=== PATIENT | female | born 1985 | race Caucasian/White ===

== ENCOUNTER 2018-08-27 06:39 | Inpatient (IN) | payer OTHER ==
--- NOTE | 2018-08-28 23:03 | HP ---
DATE OF ADMISSION: 08/29/2018 ADMISSION DIAGNOSIS: A 39 and 3/7th weeks intrauterine , admitted for elective induction of labor. HISTORY OF PRESENT ILLNESS: The patient is a 32-year-old 3, para 2-0-0-2 white female, who is admitted with an GAURANG of 09/02/2018, presently at 39 and 3/7th weeks of gestational age upon admission. She is undergoing elective induction of labor. She has had a previous section done in 2015, but had vaginal delivery of twins in 2013 and wishes to be back at this time. Vaginal after section after a trial of labor after section was discussed with the patient in detail. The procedure, risks, precautions to be taken and special preparation all discussed with her. She appears to understand, wishes to proceed and will sign the consent prior to initiation of the induction. MEAT BONER AND SLICER HISTORY: 3, para 2-0-1-2. The patient's last menstrual period started on 12/06/2017 was approximate in nature. She does have periods on a monthly basis and was not using any control at the time of conception. Her GAURANG is set at 09/02/2018 by an ultrasound done at 13 and 2/7th weeks on 02/27/2018. The patient was seen on a regular basis throughout the course of her . Her previous deliveries have included the followin. Twin gestational delivery on 09/10/2013 at 38 weeks of gestational age after 24 hours of labor. Both female infants weighing 6 pounds 4 ounces and 6 pounds 7 ounces. They were delivered in [place], [place]. The patient had a retained placenta. Children's names were Courtney and Cecilia. 2. Male born on 04/10/2016, after 12 hours of labor - 9 pounds 8 ounces male by section done for failure to progress secondary to cephalopelvic disproportion. Child's name is Adolfo. course during this has been relatively unremarkable. The patient received flu shot in fall. She had genetic testing performed. She is group B strep negative. History of previous section for failure to progress. History of twin vaginal delivery. RhoGAM was given on 06/18/2018. Tdap was administered on 08/06/2018. course showed a weight gain of approximately 10 pounds from 260 to 270 pounds. Her vital signs have been normal when the appropriate size cuff has been used. Her fundal height growth has been ahead of schedule. Most recent ultrasound done on 08/06/2018, showed baby growing at the 63rd percentile. Decision was made at that time to attempt , as the patient desired as it was felt to be reasonable due to the estimated weight per ultrasound. Laboratory testing in shows her blood to be A negative with a negative antibody screen. First hemoglobin was 13.3 g/dL and platelets were 259,000. She is rubella immune. RPR is nonreactive. Urine culture showed evidence of contamination, but otherwise was negative. Hepatitis B surface antigen and HIV assays were both negative as were chlamydia and gonorrhea tests. Second trimester hemoglobin was 11.7 and platelets were 232,000. One-hour glucose tolerance test was normal at 99. Group B strep screen was negative. ALLERGIES: None. CURRENT MEDICATIONS: vitamins 1 daily. PAST MEDICAL HISTORY: 1. Vaginal delivery of twins, 09/20/2013. 2. Hay fever. PAST SURGICAL HISTORY: 1. Primary section for failure to progress, April 2016. 2. [place] teeth extraction. FAMILY HISTORY: Mother is alive and well. Father is alive, but suffers from gout. One sister is alive and well. Paternal grandfather is secondary to old age. He did have skin cancer. Paternal grandmother is secondary to old age. Paternal grandfather is secondary to black lung, as he worked in the coal [employer]. He was also a smoker and a drinker. Paternal grandmother is from old age. Was a smoker also. Family history is negative for cancer, bleeding/clotting problems. No -related issues are noted. SOCIAL HISTORY: The patient is . is Jorge L Estrada. 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 They live in [place], [place]. She does not use any significant amounts of alcohol, drugs, or tobacco. REVIEW OF SYSTEMS: GENERAL: The patient is doing well. She has no significant complaints. Baby has been active. SKIN: Negative. HEENT: Neck and back: Negative. CARDIOVASCULAR: No chest pain or exercise intolerance. RESPIRATORY: No shortness of breath or infectious symptoms. BREASTS: Changes associated with . GI: Negative. : Increased abdominal fundal height consistent with term . EXTREMITIES AND NEUROLOGICAL: Unremarkable. PHYSICAL EXAMINATION: GENERAL: The patient is a well-developed, well-nourished, pleasant, overweight female, in no acute distress. VITAL SIGNS: Last blood pressure in clinic was 122/78 with appropriate sized cuff. Her heart rate was 144. Her pregravid weight was 265 pounds. Height is 5 feet 6 inches. Pregravid body mass index was 42.9. SKIN: Warm and dry without lesions. LUNGS: Clear with good breath sounds in all lung barton. CARDIOVASCULAR: Shows regular rate and rhythm without murmurs. BREASTS: Exam is not performed, as it was done at first visit and found to be normal. ABDOMEN: Shows a gravid uterus with fundal height measurement of 40.5 cm with baby felt to be in vertex presentation. : Cervical exam shows the cervix to be 2 cm, 50% effaced, very soft, mid position, -3 station. EXTREMITIES: Show no significant edema at present the time. ASSESSMENT: 1. A 39 and 3/7th week intrauterine , admitted for elective induction of labor. 2. History of previous section for cephalopelvic disproportion secondary to a macrosomic baby weighing 9 pounds 8 ounces. The patient desires at this time. She has delivered vaginally a twin gestation in 2013. 3. Group B strep screen is negative. 4. Blood is A negative. The patient has received RhoGAM and is a candidate for RhoGAM if the baby's blood is Rh positive. 5. RPR is nonreactive. 6. The patient plans to breastfeed. PLAN: 1. Induction of labor with either artificial rupture of membranes or Pitocin followed by artificial rupture of membranes. 2. Epidural p.r.n. for pain control. 3. RPR upon admission. Platelet count upon admission. 4. Precautions regarding the risk of given to the patient. We will near continuously monitor the baby's heart rate. We will have labs performed upon admission. We will judiciously use Pitocin and rupture of membranes for induction of labor. Also, we will obtain labs and inform Anesthesia and Surgery Department that there is a patient in-house. MMSANTA /[id number] ROQUE
[2018-08-29] MEDS ORDERED: Nalbuphine 20 MG/ML 1 ML Syringe IVPUSH PRN (06:46)
[2018-08-29] MEDS ORDERED: Sodium Chloride 0.9% 10 ML Syringe FLUSH PRN (06:46)
[2018-08-29] MEDS ORDERED: Lactated Ringers 1,000 ML IV SCH (07:00)
[2018-08-29] MEDS ORDERED: Oxytocin/Lactated Ringers 10 UNIT/1,000 ML BAG IV SCH ×2 (07:00)
[2018-08-29] MEDS ORDERED: fentaNYL 100 MCG/2 ML SDV EPIDUR PRN (07:37)
[2018-08-29] MEDS ORDERED: ePHEDrine 50 MG/ML SDV IVPUSH PRN (07:37)
[2018-08-29] MEDS ORDERED: fentaNYL/Bupivacaine-NS 2 MCG/ML-0.125%/PF 100 ML Bag EPIDUR ONE (07:37)
[2018-08-29] MEDS ORDERED: diphenhydrAMINE 50 MG/ML SDV IVPUSH PRN (07:37)
--- NOTE | 2018-08-29 08:46 | PCM.PREANE ---
Preanesthetic Assessment - Anesthesia/Transfusion/Family Hx Anesthesia History: Prior Anesthesia Without Reaction Family History of Anesthesia Reaction: No Transfusion History: No Prior Transfusion(s) - Review of Systems General: No Symptoms Pulmonary: No Symptoms Cardiovascular: Dyspnea on Exertion Gastrointestinal: Abdominal Pain (labor contractions) Neurological: No Symptoms Other: Reports: None - Physical Assessment Pulse: 75 O2 Sat by Pulse Oximetry: 99 Respiratory Rate: 14 Blood Pressure: 141/77 Temperature: 37.2 C Vital Signs: Last Vital Signs Temp 37.2 C 08/29/18 07:28 Pulse 75 08/29/18 07:28 Resp 14 08/29/18 07:28 BP 141/77 H 08/29/18 07:28 Pulse Ox 99 08/29/18 07:28 Height: 1.68 m Weight: 122.606 kg ASA Class: 2 Mental Status: Alert & Oriented x3 Airway Class: Mallampati = 1 Dentition: Reports: Normal Dentition Thyro-Mental Finger Breadths: 3 Mouth Opening Finger Breadths: 3 ROM/Head Extension: Full Lungs: Clear to Auscultation, Normal Respiratory Effort Cardiovascular: Regular Rate, Regular Rhythm - Lab Values: Laboratory Last Values WBC 10.38 K/mm3 (3.98-10.04) H 08/29/18 07:25 RBC 3.70 M/mm3 (3.98-5.22) L 08/29/18 07:25 Hgb 11.2 gm/L (11.2-15.7) 08/29/18 07:25 Hct 32.5 % (34.1-44.9) L 08/29/18 07:25 MCV 87.8 fl (79.4-94.8) 08/29/18 07:25 MCH 30.3 pg (25.6-32.2) 08/29/18 07:25 MCHC 34.5 g/dl (32.2-35.5) 08/29/18 07:25 RDW Std Deviation 42.3 fL (36.4-46.3) 08/29/18 07:25 Plt Count 250 K/mm3 (182-369) 08/29/18 07:25 MPV 9.6 fl (9.4-12.3) 08/29/18 07:25 Neut % (Auto) 76.3 % (34.0-71.1) H 08/29/18 07:25 Lymph % (Auto) 14.4 % (19.3-51.7) L 08/29/18 07:25 [place] % (Auto) 7.7 % (4.7-12.5) 08/29/18 07:25 Eos % (Auto) 1.3 (0.7-5.8) 08/29/18 07:25 Baso % (Auto) 0.1 % (0.1-1.2) 08/29/18 07:25 Neut # (Auto) 7.93 K/mm3 (1.56-6.13) H 08/29/18 07:25 Lymph # (Auto) 1.49 K/mm3 (1.18-3.74) 08/29/18 07:25 [place] # (Auto) 0.80 K/mm3 (0.24-0.36) H 08/29/18 07:25 Eos # (Auto) 0.13 K/mm3 (0.04-0.36) 08/29/18 07:25 Baso # (Auto) 0.01 K/mm3 (0.01-0.08) 08/29/18 07:25 - Acknowledgements Anesthesia Type Planned: Epidural Pt an Appropriate Candidate for the Planned Anesthesia: Yes Alternatives and Risks of Anesthesia Discussed w Pt/Guardian: Yes Pt/Guardian Understands and Agrees with Anesthesia Plan: Yes PreAnesthesia Questionnaire Gastrointestinal History: Reports: GERD 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: - Past Surgical History HEENT Surgical History: Reports: Other (See Below) Other HEENT Surgeries/Procedures: enlarged adenoids Female Surgical History: Reports: Section - SUBSTANCE USE Smoking Status *Q: Never Smoker Tobacco Use Within Last Twelve Months: No Second Hand Smoke Exposure: No Days Per Week of Alcohol Use: 0 Number of Drinks Per Day: 0 Total Drinks Per Week: 0 Recreational Drug Use History: No - CURRENT (IN HOUSE) MEDS Current Meds: Current Medications Diphenhydramine HCl (Benadryl) 25 mg IVPUSH Q6H PRN PRN Reason: Itching Ephedrine Sulfate (Ephedrine Sulfate) 5 mg IVPUSH ASDIRECTED PRN PRN Reason: HYPOTENTSION Fentanyl (Sublimaze) 100 mcg EPIDUR Q3H PRN PRN Reason: Pain Lactated Ringer's (Ringers, Lactated) 1,000 mls @ 100 mls/hr IV ASDIRECTED MARIA LUZ Oxytocin/Lactated Ringer's (Pitocin In Lr 10 Units/1,000 Ml) 10 unit in 1,000 mls @ 12 mls/hr IV TITRATE MARIA LUZ; Protocol Oxytocin/Lactated Ringer's (Pitocin In Lr 10 Units/1,000 Ml) 10 unit in 1,000 mls @ 500 mls/hr IV .CONTINUOUS MARIA LUZ Nalbuphine HCl (Nubain) 10 mg IVPUSH Q2H PRN PRN Reason: pain Sodium Chloride (Saline Flush) 10 ml FLUSH ASDIRECTED PRN PRN Reason: Keep Vein Open Discontinued Medications Fentanyl/Bupivacaine HCl (Vttlbwlu-Wmkhw-Bf 2 Mcg/Ml-0.125%) 100 ml EPIDUR ONETIME ONE Stop: 08/29/18 07:38
[2018-08-29] MEDS ORDERED: Bupivacaine 0.25% 10 ML SDV ONE (09:00)
[2018-08-29] MEDS ORDERED: Ondansetron 4 MG/2 ML SDV IVPUSH PRN (14:55)
[2018-08-29] MEDS ORDERED: fentaNYL/Bupivacaine-NS 2 MCG/ML-0.125%/PF 100 ML Bag EPIDUR PRN (15:18)
--- NOTE | 2018-08-29 18:03 | PCM.SN ---
- Free Text/Narrative Note: Comfort is a 32-year-old 3 now para 3003 white female with an GAURANG of 09/02, placing her at 39-3/7 weeks gestational age on admission for spontaneous rupture of membranes. Patient had resultant clear amniotic fluid. This occurred at approximately 0515 hrs. on 08/29/2018. She came into the hospital approximately 2 hours after that time. Patient's labor progressed steadily until approximately 4 cm and was then augmented with small amount of Pitocin. She had an epidural for labor and analgesia. This worked well for her. She rapidly went to complete cervical dilation by approximately 1700 hrs. At 1724 hrs. patient delivered a viable, morris, male infant with Apgars of 8 and 9, length of 21 inches, a weight of 3320 g (7 pounds 5.1 ounces) in a left occiput anterior position. The baby was completely delivered and placed on mom's abdomen. Nose and mouth were bulb suctioned. Pitocin was started per IV to facilitate increase in uterine tone and decrease likelihood of bleeding. Cord was clamped 2 after about 1 minute of allowing it to pulse. It was cut by the baby's father. Cord blood was obtained. The umbilical cord was noted to have 3 vessels. The placenta delivered at 1727 hrs. in a Gary presentation. It appeared intact and complete and was discarded per patient desire. Estimated blood loss was 200 mL. Patient plans to breast-feed. Condition: Good
[2018-08-29] MEDS ORDERED: Benzocaine/Menthol 20%-0.5% Spray 56 GM Canister TOP PRN (18:10)
[2018-08-29] MEDS ORDERED: Docusate Sodium 100 MG Cap PO PRN (18:10)
[2018-08-29] MEDS ORDERED: Witch Hazel Medicated Pads 40/Jar TOP PRN (18:10)
[2018-08-29] MEDS ORDERED: Lanolin 100% Cream 7 GM Tube TOP PRN (18:10)
[2018-08-29] MEDS ORDERED: Acetaminophen 325 MG Tab PO PRN (18:10)
[2018-08-29] MEDS: Ibuprofen 600 MG Tab PO PRN (20:22)
[2018-08-30] MEDS: Ibuprofen 600 MG Tab PO PRN (01:20)
--- NOTE | 2018-08-30 09:59 | PCM48HPAN ---
Post Anesthesia Note - EVALUATION WITHIN 48HRS OF ANESTHETIC Vital Signs in Normal Range: Yes Patient Participated in Evaluation: Yes Respiratory Function Stable: Yes Airway Patent: Yes Cardiovascular Function Stable: Yes Hydration Status Stable: Yes Pain Control Satisfactory: Yes Nausea and Vomiting Control Satisfactory: Yes Mental Status Recovered: Yes Pulse Rate: 59 Resp Rate: 16 Temperature: 36.8 C Blood Pressure: 134/74 - COMMENTS/OBSERVATIONS Free Text/Narrative:: no anesthesia complications noted
--- NOTE | 2018-08-30 10:39 | PCM.SN ---
- Free Text/Narrative Note: note: Patient is doing well in the period. Minimal lochia, voiding well, ambulated without problems. Nursing without concerns. Patient is afebrile, vital signs are stable Abdomen is flat, soft, uterus is below the umbilicus and is firm and nontender. Legs are nontender. Assessment: recovery going well. Plan: Routine care. Patient be discharged home within the next 24- 48 hours.
--- NOTE | 2018-08-30 10:42 | PCM.DCSUM1 ---
Discharge Summary - Hospital Course Free Text/Narrative:: Comfort is a 32-year-old 3 now para 3003 white female with an GAURANG of 09/02, placing her at 39-3/7 weeks gestational age on admission for spontaneous rupture of membranes. Patient had resultant clear amniotic fluid. This occurred at approximately 0515 hrs. on 08/29/2018. She came into the hospital approximately 2 hours after that time. Patient's labor progressed steadily until approximately 4 cm and was then augmented with small amount of Pitocin. She had an epidural for labor and analgesia. This worked well for her. She rapidly went to complete cervical dilation by approximately 1700 hrs. At 1724 hrs. patient delivered a viable, morris, male infant with Apgars of 8 and 9, length of 21 inches, a weight of 3320 g (7 pounds 5.1 ounces) in a left occiput anterior position. The baby was completely delivered and placed on mom's abdomen. Nose and mouth were bulb suctioned. Pitocin was started per IV to facilitate increase in uterine tone and decrease likelihood of bleeding. Cord was clamped 2 after about 1 minute of allowing it to pulse. It was cut by the baby's father. Cord blood was obtained. The umbilical cord was noted to have 3 vessels. The placenta delivered at 1727 hrs. in a Gary presentation. It appeared intact and complete and was discarded per patient desire. Estimated blood loss was 200 mL. Patient plans to breast-feed. Postoperative day one patient is doing well. She is nursing without problems, lochia is minimal and she is voiding well. She is ambulating without concerns. She is desiring discharge later today. Diagnosis: Stroke: No - Discharge Data Discharge Date: 08/30/18 Discharge Disposition: Home, Self-Care 01 Condition: Good - Patient Instructions Diet: Regular Diet as Tolerated (Nursing diet with increase calories and calcium is recommended) Activity: As Tolerated (No intercourse or tampons until bleeding resolves) Driving: May Drive Today Showering/Bathing: May Shower (May take a bath) Notify Provider of: Fever, Increased Pain, Swelling and Redness, Nausea and/or Vomiting - Discharge Plan Home Medications: Home Meds PNV95/Ferrous Fumarate/FA [ Tablet] 1 tab PO DAILY 08/29/18 [History] Acetaminophen [Tylenol] 650 mg PO Q4H PRN tablet 08/30/18 [Rx] Ibuprofen [Motrin] 600 mg PO Q4H PRN tablet 08/30/18 [Rx] Referrals: Marcos Gregorio MD [Physician] - (Return to clinicDr. Gregorio2 weeks.) - Discharge Summary/Plan Comment DC Time >30 min.: No Discharge Summary/Plan Comment: Discharge instructions: 1. Discharge home 2. Diet, activity and follow-up discussed with patient. Recommend nursing diet with increased calories and calcium. 3. Precautions given concern increased pain, bleeding, temperature, signs/ symptoms of DVT/PE. 4. Medications per home medication was printed, discussed with and given to the patient. 5. Return to clinic-Dr. Gregorio[facility] in 2 weeks. Diagnosis: Term -delivered Condition: Good - Patient Data Vitals - Most Recent: Last Vital Signs Temp 36.8 C 08/30/18 09:59 Pulse 59 L 08/30/18 09:59 Resp 16 08/30/18 09:59 BP 134/74 08/30/18 09:59 Pulse Ox 99 08/30/18 04:37 Weight - Most Recent: 122.606 kg I&O - Last 24 hours: Intake & Output 08/29/18 08/30/18 08/30/18 22:59 06:59 14:59 Intake Total 1000 1000 Balance 1000 1000 Lab Results - Last 24 hrs: Laboratory Results - last 24 hr 08/29/18 Range/Units 07:25 RPR Non-reactive (NONREACTIVE) Med Orders - Current: Current Medications Acetaminophen (Tylenol) 650 mg PO Q4H PRN PRN Reason: mild pain or fever Benzocaine/Menthol (Dermoplast Pain Relief [place]) 0 gm TOP ASDIRECTED PRN PRN Reason: Perineal Comfort Measure Last Admin: 08/29/18 20:21 Dose: 1 canister Docusate Sodium (Colace) 100 mg PO BID PRN PRN Reason: Constipation Emollient Ointment (Lansinoh Hpa) 0 gm TOP ASDIRECTED PRN PRN Reason: Sore Nipples Ibuprofen (Motrin) 600 mg PO Q4H PRN PRN Reason: Mild pain or fever Last Admin: 08/30/18 01:20 Dose: 600 mg Witch Zaina (Tucks) 1 pad TOP ASDIRECTED PRN PRN Reason: Pain Last Admin: 08/29/18 20:21 Dose: 1 tub Discontinued Medications Bupivacaine HCl (Sensorcaine-Mpf 0.25%) 10 ml .ROUTE .STK-MED ONE Stop: 08/29/18 09:01 Diphenhydramine HCl (Benadryl) 25 mg IVPUSH Q6H PRN PRN Reason: Itching Ephedrine Sulfate (Ephedrine Sulfate) 5 mg IVPUSH ASDIRECTED PRN PRN Reason: HYPOTENTSION Fentanyl (Sublimaze) 100 mcg EPIDUR Q3H PRN PRN Reason: Pain Last Admin: 08/29/18 15:38 Dose: 100 mcg Fentanyl/Bupivacaine HCl (Ydheoaky-Hovbv-Jr 2 Mcg/Ml-0.125%) 100 ml EPIDUR ONETIME ONE Stop: 08/29/18 07:38 Last Admin: 08/29/18 23:44 Dose: Not Given Fentanyl/Bupivacaine HCl (Rgecyvli-Jcrrn-Ig 2 Mcg/Ml-0.125%) 100 ml EPIDUR ASDIRECTED PRN PRN Reason: Pain (severe 7-10) Last Admin: 08/29/18 15:39 Dose: 100 ml Lactated Ringer's (Ringers, Lactated) 1,000 mls @ 100 mls/hr IV ASDIRECTED MARIA LUZ Last Admin: 08/29/18 12:45 Dose: 100 mls/hr Oxytocin/Lactated Ringer's (Pitocin In Lr 10 Units/1,000 Ml) 10 unit in 1,000 mls @ 12 mls/hr IV TITRATE MARIA LUZ; Protocol Last Titration: 08/29/18 16:35 Dose: 5 munits/min, 30 mls/hr Oxytocin/Lactated Ringer's (Pitocin In Lr 10 Units/1,000 Ml) 10 unit in 1,000 mls @ 500 mls/hr IV .CONTINUOUS MARIA LUZ Nalbuphine HCl (Nubain) 10 mg IVPUSH Q2H PRN PRN Reason: pain Ondansetron HCl (Zofran) 4 mg IVPUSH Q4HR PRN PRN Reason: Nausea/Vomiting Last Admin: 08/29/18 15:10 Dose: 4 mg Sodium Chloride (Saline Flush) 10 ml FLUSH ASDIRECTED PRN PRN Reason: Keep Vein Open
== END 2018-08-30 18:15 | disposition home or self-care (01) | DRG 807 ==
LOC: EDSTATUS 08:00 → JD.OB 08-29 06:28 → OBSVTOIN 08-29 17:24 → JD.OB 08-29 17:58
PROVIDERS: ADMIT Obstetrics & Gynecology; ATTEND Obstetrics & Gynecology
PROC: 10E0XZZ Delivery of Products of Conception, External Approach (ICD-10-PCS; principal; 2018-08-29)
PROC: 6A550ZT Pheresis of Cord Blood Stem Cells, Single (ICD-10-PCS; principal; 2018-08-29)
PROC: 00HU33Z Insertion of Infusion Device into Spinal Canal, Percutaneous Approach (ICD-10-PCS; 2018-08-29)
PROC: 3E0R3BZ Introduction of Anesthetic Agent into Spinal Canal, Percutaneous Approach (ICD-10-PCS; 2018-08-29)
DX: O34.219 Maternal care for unspecified type scar from previous cesarean delivery (principal); Z37.0 Single live birth; Z3A.39 39 weeks gestation of pregnancy; N85.8 Other specified noninflammatory disorders of uterus; O99.62 Diseases of the digestive system complicating childbirth; K21.9 Gastro-esophageal reflux disease without esophagitis
CPT/HCPCS: 36415; 51702; 59025; 59409; 85025; 86592; 86850; 86900; 86901; A9270-GY; J2405; J2590; J3010; J3490; J7120